=== PATIENT | male | born 1980 | race Two or more races ===

== ENCOUNTER 2017-04-18 12:50 | Emergency (ER) | payer MEDICAID, OTHER ==
[2017-04-18 13:00] VITALS: BP 134/95; PULSE 99; RESP 16; TEMP 98.2; O2SAT 97
--- NOTE | 2017-04-18 14:15 | EDPHY ---
H & P Stated Complaint: ELBOWED ON LEFT SIDE OF JAW 1 WEEK AGO, BROKEN TOOTH Source: Patient Exam Limitations: No limitations - Personal History Current Tetanus Diphtheria and Acellular Pertussis (TDAP): Yes Tetanus Vaccine Date: 2012 - Medical/Surgical History Hx Asthma: No Hx Chronic Respiratory Disease: No Hx Diabetes: No Hx Cardiac Disease: No Hx Renal Disease: No Hx Cirrhosis: No Hx Alcoholism: No Hx HIV/AIDS: No Hx Splenectomy or Spleen Trauma: No Other PMH: 4 teeth extracted; skin graft as baby; broken jaw - Social History Smoking Status: Current every day smoker HPI/ROS: CHIEF COMPLAINT: Dental pain, left jaw pain status post trauma HISTORY OF PRESENT ILLNESS: Patient complains of 1 week history of left mandible pain. He reports being struck in the left mandible by an elbow or shoulder while playing basketball 1 week ago. He has had constant pain since this time. Worse with palpation or movement. Difficulty opening the mouth. No fever or chills. Has taken naproxen without improvement. It has taken amoxicillin from previous prescription without improvement. He is not taking any blood in the mouth. He has no tongue laceration. No fever or chills. No other associated complaints or modifying factors. REVIEW OF SYSTEMS: Ten systems reviewed and are negative unless otherwise noted in the HPI PAST MEDICAL HISTORY: None PAST SURGICAL HISTORY: None SOCIAL HISTORY: Nonsmoker. Poor dental care. FAMILY HISTORY: Noncontributory EXAMINATION General Appearance: Alert, no distress Head: normocephalic, atraumatic Eyes: Pupils equal and round, no conjunctival pallor or injection ENT, Mouth: Mucous membranes moist. There is no trismus. There is multiple area of dental caries. No pulpitis or dental abscess appreciated. Airway is widely patent. There is tenderness to the left mandibular ramus. Neck: Normal inspection, supple, non-tender Respiratory: Lungs are clear to auscultation Cardiovascular: Regular rate and rhythm. No murmur. Gastrointestinal: Abdomen is soft and nontender Neurological: A&O, nonfocal, normal gait Skin: Warm and dry, no rash Extremities: Nontender, no pedal edema Psychiatric: Mood and affect normal DIFFERENTIAL DIAGNOSES: Including but not limited to dental nam, dental pain, dental abscess, pulpitis , mandibular fracture, opioid dependency MDM: 1:33 p.m. Dental pain on the right side with left mandibular pain with reported trauma 1 week ago. No obvious abnormality found on examination of the oral mucosa. There are multiple dental caries and poor dentition. No obvious dental abscess. CT of the maxillofacial as been ordered. 2:15 p.m. Notified by radiologist Dr. Foley. CT scan of the maxillofacial bones reveals no acute fracture findings. There is poor dentition and multiple dental caries. Chronic sinusitis noted. 2:20 p.m. I have re-evaluated the patient. He still complains of pain left mandible. I discussed this may be soft tissue in etiology. Discharged home with clindamycin given the sinusitis and possibility of dental caries with underlying infection that is not visible. I provided the emergency dental clinic information and [facility]. Recommended that he follow up with them or with [facility] here locally in the next 1-2 days. Return to ER precautions discussed. Given his extensive narcotic prescription history, I elected not to provide any narcotic pain medication at this time. (Balbir Ordonez) Constitutional: Initial Vital Signs Temperature (C) 36.8 C 04/18/17 12:58 Heart Rate 99 04/18/17 12:58 Respiratory Rate 16 04/18/17 12:58 Blood Pressure 134/95 H 04/18/17 12:58 O2 Sat (%) 97 04/18/17 12:58 O2 Delivery Mode Room Air Allergies/Adverse Reactions: Penicillins Allergy (Severe, Verified 04/18/17 13:01) throat swells tramadol Allergy (Severe, Verified 04/18/17 13:01) throat swells Home Medications: Medication Instructions Recorded IBUPROFEN 12/29/15 Clindamycin 300 mg PO Q8 #60 cap 04/18/17 Medical Decision Making - Diagnostics Imaging Results: Imaging Impressions Face CT 04/18/17 13:33 Impression: 1. No evidence for acute fracture. 2. Acute and chronic sinusitis in the paranasal sinuses, more severe in the maxillary sinuses. 3. Multiple dental caries bilaterally. Results called and discussed with Balbir Ordonez PA-C, on April 18, 2017 at 1412. E:amm ED Course/Re-evaluation: The patient was evaluated and managed by the physician oceanographer assistant. I have reviewed this chart and I agree with the findings and plan of care as documented , as indicated by my signature. I am the secondary supervising physician. ( Maryuri Steel) Departure - Departure Disposition: Home, Routine, Self-Care Clinical Impression: Pain, dental, Dental caries, Mandibular pain Condition: Good Instructions: Dental Caries (ED), Acute Dental Trauma (ED) Additional Instructions: 1. Follow up with dentist for definitive care Referrals: Tyree Chiu DDS [Doctor of Dental Surgery] - As per Instructions NONE *PRIMARY CARE P,. [Primary Care Provider] - As per Instructions Bushra Spencer MD [Medical Doctor] - As per Instructions [facility] [Outside] - As per Instructions Prescriptions: Clindamycin 300 mg PO Q8 #60 cap
== END 2017-04-18 14:41 | disposition home or self-care (01) ==
DX: S09.93XA Unspecified injury of face, initial encounter (principal); W50.0XXA Accidental hit or strike by another person, initial encounter; Y99.8 Other external cause status; Y93.67 Activity, basketball; F17.200 Nicotine dependence, unspecified, uncomplicated